=== PATIENT | male | born 1960 | race Caucasian/White ===

== ENCOUNTER 2025-02-19 00:57 | Day surgery (SDC) | payer BC, SELFPAY ==
[2025-02-07 13:15] VITALS: BMI 30.2
--- NOTE | 2025-02-07 13:23 | PC.NURSE ---
Report to the Outpatient Waiting Room, entrance under the green pavilion located off [facility], at time _0845_ on date _[phone]_. Planned Procedure Time: _1045_.? Time changes happen often and if your time is changed the preop area will call you the afternoon before. - You and your visitor will be asked to self-screen and do not enter if you have any COVID symptoms. Please call surgeon if you need to reschedule. - A mask is optional within the hospital at this time. May have clear liquids (water, carbonated beverages, clear teas, apple juice) until 245am prior to surgery with a maximum of 20 ounces. Nothing to drink after 245am. - No food from midnight until time of surgery and no smoking, or chewing tobacco (or any form of nicotine). No chewing gum, candy or mints. Take only the following medications with a SIP of water on the morning of surgery: ___None____ DO NOT STOP ANY OF YOUR OTHER PRESCRIPTION MEDICATIONS PRIOR TO SURGERY EXCEPT THE FOLLOWING Hold all vitamins and supplements for 3 days per anesthesiologist. Medications to discontinue per physician Date to take last dose Please no make-up, nail estonian, hairspray, perfume, deodorant, or body powder the day of surgery.? No jewelry (including any body piercings) or valuables the day of surgery, leave them at home.? Please take a shower or bath the night before, or the morning of, surgery with an antibacterial soap.? Wear comfortable, loose fitting clothing.? - Jewelry must be removed prior to entering the operating room.? Rings and piercings that are not removed may be cut off. - The hospital will not accept responsibility for valuables.? - Please leave all valuables, including medications, at home the day of surgery. If you are going home after surgery, a licensed solo truck driver must drive you home.? - NO public transportation without another adult if you receive anesthesia. - We recommend that an adult stay with you for 24 hours following discharge. - We also recommend that you do not drive, make important decision, drink alcoholic beverages, or take any drugs that were not prescribed by your health care provider for at least 24 hours after your discharge time. Follow any additional instructions given to you from your surgeon. Telephone instructions given to __Scott___and asked if any additional questions and then verbalized understanding. Patient advised to call surgeon office or pre surgery nurse liaison [phone] if any additional questions.
--- OUTSIDE RECORDS SUMMARY | 2025-02-19 00:59 | XMS_ITS | Clinical Summary ---
Author Organization [facility] Address [facility] [place] [address] Care Team Providers Care Plaster Form Maker Name Role Phone Patricia Gatica MD Primary Care Provider + Allergies No known active allergies Medications amoxicillin-cla vulanate (AUGMENTIN) 500-125 MG tablet Take 1 tablet (500 mg of amoxicillin total) by mouth every 8 (eight) hours. Active Active Problems Problem Noted Date Diagnosed Date Dupuytren's contracture 02/10/2025 Prediabetes 02/10/2025 Encounters Date Type Department Care Team Description 02/14/2025 11:45 AM CDT - 02/14/2025 11:59 PM CDT Hospital Encounter [facility] Diagnostic Imaging [address] [place] [address] Patricia Gatica MD Discharge Disposition: Home or Self Care (Routine Discharge) 02/14/2025 MyChart Message Enc [facility] Family Medicine [address] [place] [address] Patricia Gatica MD EKG Trst 02/14/2025 Travel 02/11/[address] [place] [address] Patricia Gatica MD Record Request 02/10/2025 8:30 AM CDT Office Visit [address] [place] [address] Patricia Gatica MD New Patient (Here to get established. ); Knee Pain (Right knee pain. Swelling. Hurts to walk at times. No evidence of injury. ) 02/10/2025 Results Follow-Up [facility] Family [facility] - [place] [address] [facility] [address] [place] [address] Patricia Gatica MD LIPID PANEL, PROSTATE SPECIFIC ANTIGEN,SCREENING, BASIC METABOLIC PANEL, HEMOGLOBIN, GLYCOSYLATED 02/10/2025 Travel from Last 3 Months Immunizations Immunization Administration Dates Next Due Shingrix 02/10/2025 Tdap (Adacel) 02/10/2025 Family History Medical History Relation Comments Cancer Brother 1 lymph nodes in t he neck Lymphoma Brother 2 Hypertension Daughter 3 Dementia Father Lung Cancer Father smoker Stroke Father Cancer Maternal Grandfather CHF Mother Colon Cancer Paternal Grandmother Relation Status Comments Brother 1 Alive Brother 2 Alive Daughter 1 Alive Daughter 2 Alive Daughter 3 Alive Father Maternal Grandfather Mother Paternal Grandmother Sister Alive Social History Tobacco Use Types Packs/Day Years Used Date Smoking Tobacco: Never Passive Smoke Exposure: Past Smokeless Tobacco: Never Tobacco Cessation:Counseling Given: No Alcohol Use Standard Drinks/Week Comments Yes 3.3 (1 standard drink = 0.6 oz p ure alcohol) socially PHQ-2 Answer Date Recorded Patient Health Questionnaire-2 Score 0 02/10/2025 Sex and Gender Information Value Date Recorded Sex Assigned at Not on file Legal Sex Male 1:53 PM CDT Gender Identity Not on file Sexual Orientation Not on file Occupation Industry Job Start Date Job End Date previously worked for [employer] Not on file Not on file Not on file Last Filed Vital Signs Vital Sign Reading Time Taken Comments Blood Pressure 143/86 02/10/2025 8:48 AM CDT Pulse 68 02/10/2025 8:43 AM CDT Temperature 36.5 C (97.7 F) 02/10/2025 8:43 AM CDT Respiratory Rate - - Oxygen Saturation 96% 02/10/2025 8:43 AM CDT Inhaled Oxygen Concentration - - Weight 98.8 kg (217 lb 12.8 oz) 02/10/2025 8:43 AM CDT Height 177.8 cm (5' 10 ) 02/10/2025 8:43 AM CDT Body Mass Index 31.25 02/10/2025 8:43 AM CDT Plan of Treatment Upcoming Encounters Date Type Department Care Team (Late st Contact Info) Description 02/25/2025 8:00 AM CDT Appointment [place] [facility] [address] [facility] [address] [address] Patricia Gatica MD [address] [place] [address] Rayna Sow MD [address] [place], [place] [id number] 03/04/2025 2:20 PM CDT Office Visit [facility] Family [facility] - [place] [address] [place] [phone] Patricia Gatica MD [address] [place], [place] [address] Health Maintenance Due Date Last Done Comments Colorectal Cancer Screening Colonoscopy (10 Years) 1962 Hepatitis C 1980 Pneumococcal Vaccine: 50+ Ye ars (1 of 1 - PCV) 2012 COVID-19 Vaccine (1 - 2023-2 5 season) 2024 Zoster Vaccines (2 of 2) 04/07/2025 02/10/2025 Annual Physical 02/10/2026 02/10/2025 DTaP, Tdap and Td Vaccines ( 2 - Td or Tdap) 02/10/2035 02/10/2025 RSV Immunization or 60+ Years (1 - 1-dose 75+ series) 2037 PHQ-2 (Physician [place]) Completed 02/10/2025 Meningococcal B Vaccine Aged Out No l onger eligible based on patient's age to complete this topic Meningococcal Vaccine Aged Out No mckinley lópez eligible based on patient's age to complete this topic RSV Immunizations Under 20 Months Aged Out No longer eligible based on patient's age to complete this topic Procedures Procedure Name Priority Date/Time Associated Diagnosis Comments XR CHEST PA+LAT Routine 02/14/2025 12:03 PM CDT Chest pain, unspecified type COLLECTION VENOUS BLOOD VENIPUNCTURE Routine 02/10/2025 9:24 AM CDT Routine general medical examination at a health care facility Special screening for malignant neoplasm of prostate Chest pain, unspecified type HEMOGLOBIN, GLYCOSYLATED Routine 02/10/2025 9:23 AM CDT Routine general medical examination at a health care facility BASIC METABOLIC PANEL Routine 02/10/2025 9:23 AM CDT Routine general medical examination at a [facility] care facility PROSTATE SPECIFIC ANTIGEN,SCREENING Routine 02/10/2025 9:23 AM CDT Special screening for malignant neoplasm of prostate LIPID PANEL Routine 02/10/2025 9:23 AM CDT Routine general medical examination at a [facility] care facility from Last 3 Months Results * XR CHEST PA+LAT (02/14/2025 12:03 PM CDT) Anatomical Region Laterality Modality Chest Radiographic Eneida ging 02/14/2025 12:0 1 PM CDT Impressions 02/14/2025 12:03 PM CDT IMPRESSION: No acute cardiopulmonary abnormality. Small nodular density left lower lung this may relate to a pulmonary vessel. Oblique views of the chest recommended versus chest CT. Ordered By: PATRICIA GATICA Interpreted By: Magno Mcnair MD, 02/14/2025 12:01 PM Narrative 02/14/2025 12:03 PM CDT [facility] [address] [place] [address] Procedure(s): XR CHEST PA+LAT Date of service: 02/14/2025 11:54 AM Provided clinical information: 64 years, Male, chest pain Procedure and materials: PA and lateral Comparison studies: None. Findings: Cardiac silhouette is within normal limits. The lungs expanded clear of any consolidations. No blunting of costophrenic angles to suggest effusions. There is a small nodular density that is present in the left mid lung which may relate to pulmonary vessel en face. Oblique views of the chest versus chest CT recommended. Procedure Note Magno Mcnair MD - 02/14/2025 [facility] [address] [place] [address] Procedure(s): XR CHEST PA+LAT Date of service: 02/14/2025 11:54 AM Provided clinical information: 64 years, Male, chest pain Procedure and materials: PA and lateral Comparison studies: None. Findings: Cardiac silhouette is within normal limits. The lungs expanded clear ofany consolidations. No blunting of costophrenic angles to suggesteffusions. There is a small nodular density that is present in the left mid lungwhich may relate to pulmonary vessel en face. Oblique views of the chestversus chest CT recommended. IMPRESSION: No acute cardiopulmonary abnormality. Small nodular density left lower lung this may relate to a pulmonaryvessel. Oblique views of the chest recommended versus chest CT. Ordered By: PATRICIA GATICA Interpreted By: Magno Mcnair MD, 02/14/2025 12:01 PM Patricia Gatica MD GENERAL IMAGING Final Re sult * (ABNORMAL) HEMOGLOBIN, GLYCOSYLATED (02/10/2025 9:23 AM CDT) HGB A1C 5.7 4.5 - 6.2 % 02/10/2025 2:35 PM CDT [facility] ESTIM[facility] AVG GLUCOSE 117(H) 74 - 106 MG/DL 02/10/2025 2:35 PM CDT [facility] 02/10/2025 9:23 AM CDT Patricia Gatica MD LABORATORY Final Re sult Performing Organization Address [facility] Co de Phone Number [facility] [address] [place] [address], * PROSTATE SPECIFIC ANTIGEN,SCREENING (02/10/2025 9:23 AM CDT) PSA 1.32 <4.00 NG/ML 02/10/2025 2:32 PM CDT [facility] Comment: ASSAY PERFORMED BY [employer]OLOG[employer] USING [employer]. PATIENT RESULTS DETERMINED BY ASSAYS FROM DIFFERENT MANUFACTURERS AND/OR BY DIFFERENT METHODS MAY NOT BE COMPARABLE. 02/10/2025 9:23 AM CDT Patricia Gatica MD LABORATORY Final Re sult Performing Organization Address [facility] Co de Phone Number [facility] [address] [place] [address], * (ABNORMAL) BASIC METABOLIC PANEL (02/10/2025 9:23 AM CDT) SODIUM S/P/B 139 136 - 145 MMOL/L 02/10/2025 2:26 PM CDT [facility] POTASSIUM S/P/B 4.2 3.5 - 5.1 MMOL/L 02/10/2025 2:26 PM CDT [facility] CHLORIDE S/P/B 104 98 - 107 MMOL/L 02/10/2025 2:26 PM CDT [facility] CO2 34.2(H) 21 - 32 MMOL/L 02/10/2025 2:26 PM CDT [facility] GLUCOSE 103(H) 70 - 99 MG/DL 02/10/2025 2:26 PM CDT [facility] BUN 24(H) 7 - 18 MG/DL 02/10/2025 2:26 PM CDT [facility] CREATININE S/P/B 1.12 0.70 - 1.30 MG/DL 02/10/2025 2:26 PM CDT [facility] CALCIUM S/P/B 9.7 8.4 - 10.5 MG/DL 02/10/2025 2:26 PM CDT [facility] ANION GAP 0.8(L) 5 - 15 MMOL/L 02/10/2025 2:26 PM CDT [facility] Comment:REFERENCE RANGE NOT ESTABLISHED OSMOLALITY (CALC) 292 MOSM/KG 025 2:26 PM CDT [facility] Comment:REFERENCE RANGE NOT ESTABLISHED GFR ESTIMATE 74(L) >90 ML/MIN/1. 73 M2 02/10/2025 2:26 PM CDT [facility] GFR NOTES GFR REFERENCE S: 02/10/2025 2:26 PM T [facility] Comment: THE ESTIMATED GFR IS CALCULATED USING THE 2020 CKD-EPI EQUATION. THE FOLLOWING CATEGORIES FOR GRADING RENAL FUNCTION ARE RECOMMENDED BY THE INTERNATIONAL SOCIETY OF NEPHROLOGY (KDIGO 2012 CLINICAL PRACTICE GUIDELINE). G1,NORMAL OR HIGH: >89 ml/min/1.73 m2 G2,MILDLY DECREASED: 60-89 ml/min/1.73 m2 G3A,MILDLY TO MODERATELY DECREASED: 45-59 ml/min/1.73 m2 G3B,MODERATELY TO SEVERELY DECREASED: 30-44 ml/min/1.73 m2 G4,SEVERELY DECREASED: 15-29 ml/min/1.73 m2 G5,KIDNEY FAILURE: <15 ml/min/1.73 m2 02/10/2025 9:23 AM CDT us Patricia Gatica MD LABORATORY Final Re sult -[facility] [place] [address] [facility] [address], [place] [phone] * (ABNORMAL) LIPID PANEL (02/10/2025 9:23 AM CDT) CHOLESTEROL 196 <200 MG/DL 02/10/2025 2:26 PM CDT [facility] TRIGLYCERIDES 186(H) <150 MG/DL 02/10/2025 2:26 PM CDT [facility] HDL 53 >40 MG/DL 02/10/2025 2:26 PM CDT [facility] LDL-C 106(H) <100 MG/DL 02/10/2025 2:26 PM CDT [facility] VLDL CALCULATION 37(H) 5 - 28 MG/DL 02/10/2025 2:26 PM CDT [facility] CHOL/HDL RATIO 3.7 0.0 - 4.0 02/10/2025 2:26 PM CDT [facility] LDL/HDL 2.0 0.41 - 2.13 02/10/2025 2:26 PM CDT [facility] NON HDL CHOLESTEROL 143(H) <140 MG/DL 02/10/2025 2:26 PM CDT [facility] 02/10/2025 9:23 AM CDT Patricia Gatica MD LABORATORY Final Re sult [facility] [address] [place] [address], from Last 3 Months Insurance [facility] Care Teams Plaster Form Maker Relationship Specialty Start Date End Date Patricia Gatica MD [address] [facility] [address] [place] [address] [id number] PCP - General FAMILY PRACTICE 02/10/25
--- OUTSIDE RECORDS SUMMARY | 2025-02-19 00:59 | XMS_ITS | Clinical Summary ---
Author Organization [facility] Address [address] [place] [address] Care Team Providers Care Piler Name Role Phone Anselmo Alvarado MD Primary Care Provider [phone] Source Comments [facility],non-owned Affiliates and Associated Physician Practices is amultiple site organization consisting of ambulatory clinics and hospital sitesin [place], [place], [place] and [place]. This disclosure is being madepursuant to the Care Everywhere program and may not contain all information available regarding this patient. 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 CLAM BED Gender Identity Not on file Sexual Orientation Not on file Plan of Treatment Health Maintenance Due Date Last Done Comments COLOGUARD (AGES 45-75) - COL ON CA SCREENING 1962 COLON MONITORING 1962 COLONOSCOPY - COLON CA SCREENING 1962 CT COLONOGRAPHY - COLON CA SCREENING 1962 Colorectal Cancer Screening 1962 FIT - COLON CA SCREENING 1962 FLEX SIG - COLON CA SCREENING 1962 LIPID TESTING 1962 HIV SCREENING 1977 HEPATITIS C SCREENING 07/05/1980 DTAP/TDAP/TD VACCINES (1 - Tdap) 1981 PNEUMOCOCCAL VACCINE 50+ (1 of 1 - PCV) 2012 ZOSTER VACCINE (1 of 2) 2012 COVID-19 VACCINE ( - 2023-2 5 season) 2024 DEPRESSION SCREENING 10/16/2024 INFLUENZA VACCINE (Season Ended) 2025 Respiratory Syncytial Virus (RSV) Vaccine Pt: or over 60 yrs (1 - 1-dose 75+ series) 2037 HEPATITIS B VACCINE Aged Out No longe r eligible based on patient's age to complete this topic HIB VACCINE Aged Out No longer eligi ble based on patient's age to complete this topic HPV VACCINE Aged Out No longer eligi ble based on patient's age to complete this topic MENINGOCOCCAL (Group B) VACC INE SHARED DECISION-MAKING Aged Out No longer eligibl e based on patient's age to complete this topic MENINGOCOCCAL GROUPS A/C/Y/W VACCINE Aged Out No longer eligible b ased on patient's age to complete this topic Insurance ANTHEM Care Teams Piler Relationship Specialty Start Date End Date Anselmo Alvarado MD [facility] [place] [address] PCP - General 12/09/19
--- OUTSIDE RECORDS SUMMARY | 2025-02-19 00:59 | XMS_ITS | Encounter Summary ---
Author Organization [facility] Address [address] [place] [address] Care Team Providers Care Boiler Attendant Name Role Phone Patricia Curry MD Primary Care Provider + Encounter Details Date Type Department Care Team (Late Contact Info) Description 02/14/2025 MyChart Message Enc [facility] Family Medicine - [place] [address] [facility] [address] [place] [phone] Patricia Curry MD [address] [phone] EKG Trst Social History Tobacco Use Types Packs/Day Years Used Date Smoking Tobacco: Never Passive Smoke Exposure: Past Smokeless Tobacco: Never Alcohol Use Standard Drinks/Week Comments Yes 3.3 [...] Date Job End Date previously worked for [employer] Not on file Not on file Not on file documented as of this encounter Plan of Treatment Upcoming Encounters Date Type Department Care Team (Late st Contact Info) Description 02/25/2025 8:00 AM CDT Appointment [place] [facility] [address] [facility] [place] [address] Patricia Curry MD [address] [id number] Rayna Sow MD [id number] [place] [address] 03/04/2025 2:20 PM CDT Office Visit [facility] Family Medicine - [place] [address] [phone] Patricia Curry MD [address] [phone] documented as of this encounter Visit Diagnoses Not on filedocumented in this encounter Care Teams Boiler Attendant Relationship Specialty Start Date End Date Patricia Curry MD [address] [id number] PCP - General FAMILY PRACTICE 02/10/25 documented as of this encounter
--- OUTSIDE RECORDS SUMMARY | 2025-02-19 00:59 | XMS_ITS | Encounter Summary ---
Author Organization [facility] Address [address] [facility] [place] [address] Care Team Providers Care President & Founder Name Role Phone Anselmo Alvarado MD Primary Care Provider [phone] Encounter Details Date Type Department Care Team (Late st Contact Info) Description 12/10/2019 Lab Requisition [facility] DermPath Lab [address] [facility] [facility] [place] [address] Audra Toney DO [address] [facility] [address] [place] [address] Social History Tobacco Use Types Packs/Day Years Used Date Smoking Tobacco: Never Assessed Sex and Gender Information Value Date Recorded Sex Assigned at Not on file Legal Sex Male 11:27 AM SENIOR INSTRUCTIONAL DESIGNER Gender Identity Not on file Sexual Orientation Not on file documented as of this encounter Plan of Treatment Not on file documented as of this encounter Procedures Procedure Name Priority Date/Time Associated Diagnosis Comments DERMATOPATHOLOGY Routine 12/09/2019 12:0 0 AM SENIOR INSTRUCTIONAL DESIGNER documented in this encounter Results * DERMATOPATHOLOGY (12/09/2019 12:00 AM SENIOR INSTRUCTIONAL DESIGNER) Case Report Dermatopathology Report Case: [id number] Authorizing Provider: Audra Toney DO Collected: 12/09/2019 12:00 AM Ordering Location: [facility] DermPath Lab Received: 12/10/2019 09:44 AM Pathologist: Olga Gomez MD Specimen: Skin, right upper arm 0 12:33 PM SENIOR INSTRUCTIONAL DESIGNER DERMATOPATHOLOGY LABORATORY Final Diagnosis Specimen A. SKIN, right upper arm: ACTINIC KERATOSIS (L57.0) 0 12:33 PM SENIOR INSTRUCTIONAL DESIGNER DERMATOPATHOLOGY LABORATORY Clinical History Ramona/liu macule inflamed lent vs DF R/O atypia. 0 12:33 PM SENIOR INSTRUCTIONAL DESIGNER DERMATOPATHOLOGY LABORATORY Gross Description Specimen A: Received is one formalin filled container labeled with the patient's name and designated right upper arm. The specimen consists of a shave measuring [id number]. Jar 0. 0 12:33 PM SENIOR INSTRUCTIONAL DESIGNER DERMATOPATHOLOGY LABORATORY Microscopic Description Specimen A. SKIN, right upper arm: There is focal parakeratosis. The lower half of the epidermis shows disorderly maturation of keratinocytes with nuclear pleomorphism. 0 12:33 PM SENIOR INSTRUCTIONAL DESIGNER DERMATOPATHOLOGY LABORATORY Disclaimer An external and internal positive and negative controls are appropriate for the histochemical, immunohistochemical and immunofluorescence stain(s) in this case (if any), except where stated explicitly. The performance characteristics of the stain(s) cited in this report were developed and its performance characteristic determined by the Dermatopathology Laboratory at [facility], directed by Dr. Beverly Sharp. These tests need not be, and therefore are not, approved by the [place] Food and Drug Administration. The tests are used for clinical purposes. Billing Codes Specimen Charges Stain Charges 02698 1 0 12:33 PM SENIOR INSTRUCTIONAL DESIGNER DERMATOPATHOLOGY LABORATORY Embedded Images 0 12:33 PM [facility] [place] DERMATOPATHOLOGY LABORATORY Pathology/Cytolog y TISSUE SPECIMEN FROM SKIN / Unknown 12/09/2019 12/10/2019 9:44 AM SENIOR INSTRUCTIONAL DESIGNER us Audra Toney DO LAB - PATHOLOGY/CYTOLOGY ORDERABLES Final Result DERMATOPATHOLOGY LABORATORY [facility] - Department of Dermatology [facility] [facility], 5th Floor Lab [address] [phone] documented in this encounter Visit Diagnoses Not on filedocumented in this encounter Care Teams President & Founder Relationship Specialty Start Date End Date Anselmo Alvarado MD [address] [place] [address] PCP - General 12/09/19 documented as of this encounter
--- OUTSIDE RECORDS SUMMARY | 2025-02-19 00:59 | XMS_ITS | Encounter Summary ---
Author Organization [facility] Address [address] [place] [address] Care Team Providers Care Tar Kettle Runner Name Role Phone Patricia Curry MD Primary Care Provider + Encounter Details Date Type Department Care Team (Latest Contact Info) Description 02/10/2025 Results Follow-Up [facility] Family Medicine - [place] [address] [place] [address] [phone] Patricia Curry MD [address] [address] LIPID PANEL, PROSTATE SPECIFIC ANTIGEN,SCREENING, BASIC METABOLIC PANEL, HEMOGLOBIN, GLYCOSYLATED Social History Tobacco Use Types Packs/Day Years [...] Date Job End Date previously worked for [employer] Not on file Not on file Not on file documented as of this encounter Functional Status * Over the past 2 weeks, how often have you been bothered by any of the following problems? Question Answer Date of Assessment Author Status Little interest or pleasure in doing things Not at all 02/10/2025 8:47 AM CDT Adenike Dc MA Active Feeling down, depressed, or hopeless Not at all 02/10/2025 8:47 AM CDT Adenike Dc MA Activ e Patient Health Questionnaire-2 Score 0 02/10/2025 8:47 AM CDT Adenike Dc MA Active * If you checked off any problems on this questionnaire so far, Question Answer Date of Assessment Author Status How difficult have these problems made it for you to do your work, take care of things at home, or get along with other people? Not difficult at all 02/10/2025 8:47 AM CDT Adenike Dc MA Active documented as of this encounter Plan of Treatment Upcoming Encounters Date Type Department Care Team (Late st Contact Info) Description 02/25/2025 8:00 AM CDT Appointment [facility] Non Invasive Cardiology [place], [place] [id number] Patricia Curry MD [address] [place] [id number] Rayna Sow MD [facility]. [place] [address] [place], [place] [phone] 03/04/2025 2:20 PM CDT Office Visit [facility] Family Medicine - [place] [address] [place] [address] [phone] Patricia Curry MD [address] [place] [address] [phone] documented as of this encounter Visit Diagnoses Not on filedocumented in this encounter Care Teams Tar Kettle Runner Relationship Specialty Start Date End Date Patricia Curry MD [address] [place] [address] [phone] PCP - General FAMILY PRACTICE 02/10/25 documented as of this encounter
[2025-02-19 06:27] VITALS: BP 122/83; PULSE 67; RESP 16; TEMP 36.3; O2SAT 97
--- NOTE | 2025-02-19 06:50 | P.OP_ITS ---
Procedure Note - Detailed Date of Procedure 02/19/25 Pre-op Diagnosis Dupuytren Contracture Rt Ring Finger Post-op Diagnosis Same Procedure Performed right ring finger fasciectomy Surgeon Mo Rosales MD Felled Seam Operator Chainstitch cosmo liu pa-c Anesthesia MAC Description of Procedure INFORMED CONSENT: The patient was seen and examined and marked in the pre-op area.? The patient signed the consent form. PROCEDURE IN DETAIL:The patient taken back to OR on the stretcher in supine position. Time out performed with anesthesia, surgeon and staff agreeing on patient's name site and surgery to be performed SCDs were placed on the lower extremities and inflated. A tourniquet was placed on {right} upper extremity and antibiotics given IV After anesthesia administered sedation I injected {}cc 1%lido with epi and 0.5% marcaine plain at the operative site The?{right upper extremity}?was prepped and draped in sterile fashion the??{right upper extremity} was? exsanguinated with Esmarch bandage and tourniquet inflated to 250mmHg I proceeded with making a longitudinal incision in the palm near the origin of the cord proximal to the finger extending distally and going obliquely across flexion creases through skin and dermis with a 15 blade scalpel. Fifteen blade scalpel was used to elevate skin flaps exposing the large Dupuytren's cord. Using Littler scissors I circumferentially dissected around the cord near its origin in the palm proximally. The cord was transected and then I proceeded with anterograde dissection of the cord until I was able to achieve full extension of the MP joint and the PIP joint. Neurovascular bundles were identified and protected throughout the procedure. I irrigated with normal saline. I closed skin with 4-0 chromic. A dressing of xeroform, 4x4, jose, and an mitzy bandage was applied after the tourniquet was let down noting the hand was warm and well perfused. The patient was then awaken from anesthesia and transferred to the recovery room in stable condition.? Complications - none EBL- 0cc Disposition - home in stable conditions wilfredo smiley pa-c was essential for positioing, retraction, closure and dressing placement [facility] Billing Surgery - Charge Forward: Surgery Billing ([id number] for cosmo)
--- NOTE | 2025-02-19 06:50 | P.HPUP_ITS ---
History and Physical Update Update Date/Time: 02/19/25 06:50 Patient seen and examined in pre-operative holding area. No interval change in medical history or symptoms. Patient recalls previous discussion of benefits and alternatives to procedure. Continues to desire to proceed with right ring finger fasciectomy. Reviewed procedure, post-op expectations and risks including but not limited to bleeding, infection, injury to tendon/nerve/vessel, decreased hand function, stiffness, RSD, no change or worsening of symptoms, recurrence, incomplete release. I discussed the possible use of assistants and their participation in the case. Patient stated understanding and signed the co nsent form wishing to proceed.
--- NOTE | 2025-02-19 07:57 | WPDANESEPPF ---
Anes - Initial Pre Proc Eval Procedure: Operation Date: 02/19/25 08:15 Proposed Procedures p Right Ring Finger Fasciectomy - Mo Rosales MD Date/Time: 02/19/25 07:57 Surgeon: Mo Rosales MD Pre Op Diagnosis: Dupuytren Contracture Rt Ring Finger Patient Data Age: 64 Gender: M Height: 1.78 m Weight: 95 kg Last Vital Signs Temp 36.3 C L 02/19/25 06:27 Pulse 67 02/19/25 06:27 Resp 16 02/19/25 06:27 BP 122/83 02/19/25 06:27 Pulse Ox 97 02/19/25 06:27 O2 Del Method Room Air 02/19/25 06:27 Allergies Allergy/AdvReac Type Severity Reaction Status Date / Time No Known Allergies Allergy Unverified 02/19/25 06:55 Home Medications ?Medication ?Instructions ?Recorded ?Confirmed ?Type tramadol 50 mg tablet 50 mg PO Q6H PRN pain #12 tabs 02/19/25 Rx Patient hx anesthesia problems: none Family hx anesthesia problems: none Results Review: All pre-operative results and documents have been reviewed as part of the pre-operative evaluation. [facility] Social History Social History Smoking status: Never smoker Alcohol intake: current Drinks per week: 2 Living arrangements: with family Spiritual care concerns: No Anes - Eval Final PreProcedure Day of Procedure 02/19/25 07:57 Patient weight: overweight Heart: regular rate and rhythm Lungs: clear to auscultation Airway: Mallampati scale class II Neurological: alert and oriented Last oral intake: >/= 8 hours ASA classification: II Emergent: no Anesthetic plan: proceed Anesthesia type and monitoring: general GIVS and standard monitoring Results Review: All pre-operative results and documents have been reviewed as part of the pre-operative evaluation. Informed Consent: The patient's anesthetic plan and its attendant risks and benefits were discussed with the patient/family/POA. Questions were solicited and answers provided to the satisfaction of the patient/family/POA.
[2025-02-19] MEDS: ceFAZolin 2 GM/D5W 50 ML 2 GM/50 ML BAG IVPB (08:08)
[2025-02-19] MEDS: LIDOCAINE 1% LOCAL INJ 10 ML VIAL INFILTRATE (08:10)
[2025-02-19] MEDS: BUPivacaine HCL 0.5% 10 ML AMP INFILTRATE (08:13)
[2025-02-19] MEDS: BACITRACIN OINTMENT 15 GM TUBE 1 APPLIC TOPICAL (08:24)
[2025-02-19 08:35] VITALS: BP 103/62; PULSE 73; RESP 12; O2SAT 95
[2025-02-19] MEDS: LACTATED RINGERS 1,000 ML 30 ML IV CONT (08:35)
[2025-02-19 09:00] VITALS: BP 103/67; PULSE 55; RESP 12; O2SAT 97
[2025-02-19 09:25] VITALS: BP 148/86; PULSE 54; RESP 14
== END 2025-02-19 09:40 | disposition home or self-care (01) ==
PROVIDERS: PCP Student in an Organized Health Care Education/Training Program; Visit Provider Plastic Surgery
PROC: (CPT 26045; principal; 2025-02-19 08:15)
DX: M72.0 Palmar fascial fibromatosis [Dupuytren] (principal)
CPT/HCPCS: 26123; 88304; A9270; J0690; J2003; J2250; J2704; J3010; J7120

== ENCOUNTER 2025-08-08 00:33 | Day surgery (SDC) | payer BC, SELFPAY ==
[2025-07-30 11:09] VITALS: BMI 28.8
--- OUTSIDE RECORDS SUMMARY | 2025-08-08 00:36 | XMS_ITS | Encounter Summary ---
Author Organization [facility] Address [address] [address] Care Team Providers Care Finish Inspector Name Role Phone Anselmo Alvarado MD Primary Care Provider [phone] Encounter Details Date Type Department Care Team (Late st Contact Info) Description 12/10/2019 Lab Requisition [facility] DermPath Lab [address] [facility], [place] [address] Audra Toney DO [address] [facility] [address] [place] [address] Social History Tobacco Use Types Packs/Day Years Used Date Smoking Tobacco: Never Assessed Sex and Gender Information Value Date Recorded Sex Assigned at Not on file Legal 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 Gender Identity Not on file Sexual Orientation Not on file documented as of this encounter Plan of Treatment Not on file documented as of this encounter Procedures Procedure Name Priority Date/Time Associated Diagnosis Comments DERMATOPATHOLOGY Routine 12/09/2019 12:0 0 AM SKID STRAPPER documented in this encounter Results * DERMATOPATHOLOGY (12/09/2019 12:00 AM SKID STRAPPER) Case Report Dermatopathology Report Case: [id number] Authorizing Provider: Audra Toney DO Collected: 12/09/2019 12:00 AM Ordering Location: [facility] Derm[facility] Lab Received: 12/10/2019 09:44 AM Pathologist: Olga Gomez MD Specimen: Skin, right upper arm 0 12:33 PM [facility]ERMAT[facility] Final Diagnosis Specimen A. SKIN, right upper arm: ACTINIC KERATOSIS (L57.0) 0 12:33 PM [facility] DERMATOPATHOLOGY LABORATORY at [address]33 SKID STRAPPER Clinical History Gambell/liu macule inflamed lent vs DF R/O atypia. 0 12:33 PM [facility] DERMATOPATHOLOGY LABORATORY Gross Description Specimen A: Received is one formalin filled container labeled with the patient's name and designated right upper arm. The specimen consists of a shave measuring [id number]. Jar 0. 0 12:33 PM [facility] DERMATOPATHOLOGY LABORATORY Microscopic Description Specimen A. SKIN, right upper arm: There is focal parakeratosis. The lower half of the epidermis shows disorderly maturation of keratinocytes with nuclear pleomorphism. 0 12:33 PM [facility] DERMATOPATHOLOGY LABORATORY Disclaimer An external and internal positive and negative controls are appropriate for the histochemical, immunohistochemical and immunofluorescence stain(s) in this case (if any), except where stated explicitly. The performance characteristics of the stain(s) cited in this report were developed and its performance characteristic determined by the Dermatopathology Laboratory at [facility], directed by Dr. Beverly Sharp. These tests need not be, and therefore are not, approved by the [place] Food and Drug Administration. The tests are used for clinical purposes. Billing Codes Specimen Charges Stain Charges 36889 1 0 12:33 PM [facility] DERMATOPATHOLOGY LABORATORY Embedded Images 0 12:33 PM [facility] DERMATOPATHOLOGY LABORATORY Pathology/Cytolog y TISSUE SPECIMEN FROM SKIN / Unknown 12/09/2019 12/10/2019 9:44 AM SKID STRAPPER us Audra Toney DO LAB - PATHOLOGY/CYTOLOGY ORDERABLES Final Result DERMATOPATHOLOGY LABORATORY [facility] - Department of Dermatology [address] [place] [address], [address] [place] [address], [facility] [phone] documented in this encounter Visit Diagnoses Not on filedocumented in this encounter Care Teams Finish Inspector Relationship Specialty Start Date End Date Anselmo Alvarado MD [address] [place] [address] PCP - General 12/09/19 documented as of this encounter
--- OUTSIDE RECORDS SUMMARY | 2025-08-08 00:36 | XMS_ITS | Clinical Summary ---
Author Organization [facility] Address [address] [place] [address] Care Team Providers Care Commanding Officer Garage Name Role Phone Patricia Curry MD Primary Care Provider + Allergies No known active allergies Medications No known medications Active Problems Problem Noted Date Diagnosed Date Dupuytren's contracture 02/10/2025 Prediabetes 02/10/2025 Encounters Date Type Department Care Team Description 07/04/2025 9:20 AM CDT Allied Health/Nurse Visit [facility] Family Medicine [facility] [address] [phone] Patricia Curry MD Imm/Inj (2nd shingrix vaccine/) 07/04/2025 Travel from Last 3 Months Immunizations Immunization Administration Dates Next Due Shingrix 07/04/2025,02/10/2025 Tdap (Adacel) 02/10/2025 Family History Medical History Relation Comments Cancer Brother 1 Non-Hodgkin a Lymphoma Lymphoma Brother 2 None Brother 3 Squamous call ca rcinoma in the [facility] area Hypertension Daughter 3 Dementia Father Lung Cancer Father smoker Stroke Father at 6 2 from heart issues Cancer Maternal Grandfather CHF Mother Colon Cancer Paternal Grandmother Relation Status Comments Brother 1 Alive Brother 2 Alive Brother 3 Alive Daughter 1 Alive Daughter 2 Alive Daughter 3 Alive Father Maternal Grandfather Mother Paternal Grandmother Sister Alive Social History Tobacco Use Types Packs/Day Years Used Date Smoking Tobacco: Never Passive Smoke Exposure: Past Smokeless Tobacco: Never Tobacco Cessation:Counseling Given: Not Answered Alcohol Use Standard Drinks/Week Comments Yes 3.3 [...] Date Job End Date previously worked for [employer] Not on file Not on file Not on file Last Filed Vital Signs Vital Sign Reading Time Taken Comments Blood Pressure 136/82 03/04/2025 2:18 PM CDT Pulse 61 03/04/2025 2:18 PM CDT Temperature 36.8 C (98.3 F) 03/04/2025 2:18 PM CDT Respiratory Rate - - Oxygen Saturation 96% 03/04/2025 2:18 PM CDT Inhaled Oxygen Concentration - - Weight 98.5 kg (217 lb 3.2 oz) 03/04/2025 2:18 P M CDT Height 177.8 cm (5' 10) 03/04/2025 2:18 PM CDT Body Mass Index 31.16 03/04/2025 2:18 PM CDT Plan of Treatment Upcoming Encounters Date Type Department Care Team (Late st Contact Info) Description 03/16/2026 7:50 AM CDT Office Visit [facility] Family Medicine - [place] [address] [facility] [address] [place] [address] [phone] Patricia Curry MD [address] [place] [address] [phone] Health Maintenance Due Date Last Done Comments Hepatitis C 1980 Pneumococcal Vaccine: 50+ Years (1 of 1 - PCV) 2012 Colorectal Cancer Screening Colonoscopy (10 Years) 12/14/2022 12/14/2012 COVID-19 Vaccine ( - 2023-2 5 season) 2025 Influenza Adult (#1) 2025 Annual Physical 02/10/2026 02/10/2025 DTaP, Tdap and Td Vaccines ( 2 - Td or Tdap) 02/10/2035 02/10/2025 RSV Immunization or 60+ Years (1 - 1-dose 75+ series) 2037 PHQ-2 (Physician [place]) Completed 02/10/2025 Zoster Vaccines Completed 07/04/2025, 02/10/2025 Hepatitis A Vaccines Aged Out No long er eligible based on patient's age to complete this topic Meningococcal B Vaccine Aged Out No l onger eligible based on patient's age to complete this topic Meningococcal Vaccine Aged Out No mckinley lópez eligible based on patient's age to complete this topic RSV Immunizations Under 20 Months Aged Out No longer eligible b ased on patient's age to complete this topic Procedures Procedure Name Priority Date/Time Associated Diagnosis Comments COLONOSCOPY GENERIC (SCAN ORDER) 12/14/2012 from Last 3 Months or Most Recently Relevant to Health Maintenance Results * COLONOSCOPY GENERIC (SCAN ORDER) (12/14/2012) 12/14/2012 [facility] Scanned SCANNING Final Resu lt from Last 3 Months or Most Recently Relevant to Health Maintenance Insurance [facility] Care Teams Commanding Officer Garage Relationship Specialty Start Date End Date Patricia Curry MD [address] [place] [address] PCP - General FAMILY PRACTICE 02/10/25
--- OUTSIDE RECORDS SUMMARY | 2025-08-08 00:36 | XMS_ITS | Clinical Summary ---
Author Organization [facility] Address [address] [place] [address] Care Team Providers Care Dental Aide Name Role Phone Anselmo Alvarado MD Primary Care Provider [phone] Source Comments [facility],non-owned Affiliates and Associated Physician Practices is amultiple site organization consisting of ambulatory clinics and hospital sitesin [place], [place], [place] and [place]. This disclosure is being madepursuant to the Care Everywhere program and may not contain all information available regarding this patient. Last updated 18.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 Gender Identity Not on file Sexual Orientation [...] 2012 ZOSTER VACCINE (1 of 2) 2012 DEPRESSION SCREENING 10/16/2024 COVID-19 VACCINE (1 - 2023-2 5 season) 2025 INFLUENZA VACCINE (#1) 2025 Respiratory Syncytial Virus (RSV) Vaccine Pt: [...] patient's age to complete this topic Insurance [facility] SELF PAY NO INSURANCE Member Subscriber Plan / Payer (Ef fective for All Dates) Name:Serjio Cadet Member ID:Not on file Relation to Subscriber:Not on file Name:SERJIO CADET Subscriber ID:Not on file (Home) Address: [place] [address] Payer ID:Not on file Group ID:Not on file Type:Self Pay Address: [facility] Care Teams Dental Aide Relationship Specialty Start Date End Date Anselmo Alvarado MD [address] [place] [address] PCP - General 12/09/19
[2025-08-08 12:42] VITALS: BP 146/72; PULSE 63; RESP 16; TEMP 36.2; O2SAT 100
[2025-08-08] MEDS: LACTATED RINGERS 1,000 ML 150 ML IV CONT (12:54)
--- NOTE | 2025-08-08 13:09 | P.PNAN_ITS ---
Anes - Initial Pre Proc Eval Procedure: Operation Date: 08/08/25 13:30 Proposed Procedures p Screening Colonoscopy - Adrian Pratt MD Date/Time: 08/08/25 13:09 Surgeon: Adrian Pratt MD Pre Op Diagnosis: Screening Patient Data Age: 65 Gender: M Height: 1.78 m Weight: 91.5 kg Last Vital Signs Temp 97.2 F L 08/08/25 12:42 Pulse 63 08/08/25 12:42 Resp 16 08/08/25 12:42 BP 146/72 H 08/08/25 12:42 Pulse Ox 100 08/08/25 12:42 O2 Del Method Room Air 08/08/25 12:42 Allergies Allergy/AdvReac Type Severity Reaction Status Date / Time No Known Allergies Allergy Verified 08/08/25 12:39 Home Medications ?Medication ?Instructions ?Recorded ?Confirmed ?Type tramadol 50 mg tablet 50 mg PO Q6H PRN pain #12 ta bs 02/19/25 07/30/25 Rx Patient hx anesthesia problems: none Family hx anesthesia problems: none Results Review: All pre-operative results and documents have been reviewed as part of the pre-operative evaluation. [facility] Social History Social History Smoking status: Never smoker Alcohol intake: current Drinks per week: 2 Living arrangements: with family Spiritual care concerns: No Anes - Eval Final PreProcedure Day of Procedure 08/08/25 13:09 Patient weight: normal Lungs: normal air movement Airway: Mallampati scale Neurological: alert and oriented Last oral intake: >/= 8 hours ASA classification: I Emergent: no Anesthetic plan: proceed Anesthesia type and monitoring: general GIVS and standard monitoring Results Review: All pre-operative results and documents have been reviewed as part of the pre- operative evaluation. Healthy. Informed Consent: The patient's anesthetic plan and its attendant risks and benefits were discussed with the patient/family/POA. Questions were solicited and answers provided to the satisfaction of the patient/family/POA.
--- NOTE | 2025-08-08 13:57 | PM.IMHP ---
H&P: HPI History of Present Illness Date/Time: 08/08/25 13:57 Chief Complaint: Screening colonoscopy Narrative: This is the patient's 2nd screening colonoscopy. There are no GI symptoms and there is no family history of colorectal cancer. Review of Systems Review of Systems: All systems reviewed & are unremarkable except as noted in HPI and below [facility] Social History Social History Smoking status: Never smoker Alcohol intake: current Drinks per week: 2 Living arrangements: with family Spiritual care concerns: No Meds Home Medications and Allergies Home Medications ?Medication ?Instructions ?Recorded ?Confirmed ?Type tramadol 50 mg tablet 50 mg PO Q6H PRN pain #12 tabs 02/19/25 07/30/25 Rx Allergies Allergy/AdvReac Type Severity Reaction Status Date / Time No Known Allergies Allergy Verified 08/08/25 12:39 Vital Signs Vital Signs - 24 hr 08/08/25 12:42 Temperature 97.2 F L Pulse Rate 63 Respiratory Rate 16 Blood Pressure 146/72 H Pulse Oximetry 100 Oxygen Delivery Room Air Exam Const: General: cooperative and healthy appearing Resp: Effort & Inspection: normal respiratory effort and able to speak in complete sentences Auscultation: clear to auscultation bilaterally Cardio: Rate: regular rate Rhythm: regular rhythm GI: Inspection: normal to inspection GI Palp: No No hepatosplenomegaly present Auscultation: normal bowel sounds Rectal Exam: deferred Skin: General skin exam: normal color Psych: Appearance: grossly normal Mental Status: mental status grossly normal Assessment and Plan Assessment and plan (1) Encounter for screening colonoscopy: Code(s): Z12.11 - Encounter for screening for malignant neoplasm of colon Status: Acute Assessment and Plan: The patient is deemed a good candidate for the procedure. Consent signed. Will proceed.
[2025-08-08 14:21] VITALS: BP 119/70; PULSE 59; RESP 20; O2SAT 100
[2025-08-08 14:31] VITALS: BP 112/67; PULSE 52; RESP 18; O2SAT 100
[2025-08-08 14:41] VITALS: BP 131/80; PULSE 52; RESP 18; O2SAT 100
== END 2025-08-08 14:50 | disposition home or self-care (01) ==
PROVIDERS: PCP Student in an Organized Health Care Education/Training Program; Referring Provider Student in an Organized Health Care Education/Training Program; Visit Provider Internal Medicine Gastroenterology
PROC: 0DJD8ZZ Inspection of Lower Intestinal Tract, Via Natural or Artificial Opening Endoscopic (ICD-10-PCS; CPT 45378; principal; 2025-08-08 13:30)
DX: Z12.11 Encounter for screening for malignant neoplasm of colon (principal); K64.8 Other hemorrhoids; Z79.891 Long term (current) use of opiate analgesic
CPT/HCPCS: 45378; J2704; J7120